=== PATIENT | female | born 1960 | race Caucasian/White ===

== ENCOUNTER 2018-03-29 13:19 | Emergency (ER) | payer OTHER, BC ==
[2018-03-29 14:40] LABS: ADD MAN DIFF? NO
[2018-03-29 14:45] LABS: WHITE BLOOD COUNT 8.7 10^3/ul (4.8-10.8)
[2018-03-29 14:45] LABS: BASOPHILS % 0.5 % (0.0-2.0); EOSINOPHILS # 0.1 10^3/ul (0.0-0.5); EOSINOPHILS % 0.6 % (0.0-7.0); HEMATOCRIT 41.2 % (37.0-47.0); HEMOGLOBIN 13.6 g/dl (12.0-16.0); LYMPHOCYTES # 2.1 10^3/ul (0.8-2.9); LYMPHOCYTES % 23.8 % (15.0-51.0); MEAN CORPUSCULAR VOLUME 90.7 fl (82.0-101.0); MEAN PLATELET VOLUME 9.5 fl (7.4-10.4); MONOCYTE # 0.7 10^3/ul (0.3-0.9); MONOCYTES % 7.7 % (0.0-11.0); NEUTROPHIL # 5.8 10^3/ul (1.6-7.5); NEUTROPHILS % 67.1 % (39.0-77.0); PLATELET COUNT 267 10^3/UL (140-415); RED BLOOD COUNT 4.54 10^6/ul (4.20-5.40); RED CELL DISTRIBUTION WIDTH 12.5 % (11.5-14.5)
[2018-03-29 15:04] LABS: ALANINE AMINOTRANSFERASE 38 IU/L (13-69); ALBUMIN/GLOBULIN RATIO 1.25; ALKALINE PHOSPHATASE 71 IU/L (42-121); ANION GAP 13 (8-16); ASPARTATE AMINO TRANSFERASE 24 IU/L (15-46); BILIRUBIN,INDIRECT 0.4 mg/dl (0-1.1); BILIRUBIN,TOTAL 0.4 mg/dl (0.2-1.3); BLOOD UREA NITROGEN 11 mg/dl (7-20); CALCIUM 9.8 mg/dl (8.4-10.2); CARBON DIOXIDE 29 mmol/L (21-31); CHLORIDE 105 mmol/L (97-110); CREATININE 0.63 mg/dl (0.44-1.00); GLUCOSE 101 mg/dl (70-220); POTASSIUM 4.2 mmol/L (3.5-5.1); SODIUM 143 mmol/L (135-144); TOTAL PROTEIN 7.2 g/dl (6.1-8.1)
[2018-03-29 15:16] LABS: TROPONIN-I < 0.012 ng/ml (0.000-0.120)
[2018-03-29 15:20] LABS: FREE THYROXINE INDEX (Calc) 2.15 ug/ml (0.65-3.89); T3 UPTAKE 31.1 % (23.5-40.5); T4 (THYROXINE) 6.9 ug/dl (5.5-11.0)
[2018-03-29] MEDS: SOD CHLORIDE 0.9% 100 ML (23:23)
[2018-03-29] MEDS: IOHEXOL 300MG/ML 150 ML BTL (23:24)
== END 2018-03-29 16:49 | disposition home or self-care (01) ==
LOC: FTE 13:19
DX: F45.8 Other somatoform disorders (principal)
CPT/HCPCS: 36415; 70491; 80053; 84436; 84443; 84479; 84484; 85025; 93005; 99285-25